=== PATIENT | male | born 1965 | race Caucasian/White ===

== ENCOUNTER 2018-10-15 16:46 | Emergency (ER) | payer SELFPAY ==
[~2018-10-15] VITALS: Ht 182.9 cm; Wt 127.0 kg
[2018-10-15 16:48] VITALS: BP_SYST 164
--- NOTE | 2018-10-15 16:48 | NUR ---
Geraldine richardson in ED - 10/15/18 at 1657 by [email or web address] Placed in room 02 . Placed on cardiac rehab nurse, blood pressure machine and pulse oximeter. To gown for exam. Side rails up.
--- NOTE | 2018-10-15 16:48 | NUR ---
patient arrived AOx4 from home with c/o SOB x 4 days. patient states he has had a chest cold for about 2 weeks and its gotten worse. patient is able to speak in complete sentances and can walk without assistance or SOB. Lung deras are wheezing bilaterally.no other complaint or injury at this time.
--- NOTE | 2018-10-15 16:48 | NUR ---
Placed in room 04 . Placed on school lunch monitor, blood pressure machine and pulse oximeter. To gown for exam. Side rails up.
--- NOTE | 2018-10-15 17:00 | NUR ---
RT at bedside
[2018-10-15] MEDS ORDERED: IPRATROPIUM/ALBUTEROL SULFATE 3 ML AMPUL.NEB (DUONEB) ONE (17:02)
--- NOTE | 2018-10-15 17:30 | NUR ---
patient states he feels better after treatment. patient has a history of smoking and patient states this happens a lot.
[2018-10-15] MEDS ORDERED: methylPREDNISolone SOD SUCC/PF 62.5 MG/ML VIAL IVP ONE (17:45)
[2018-10-15 18:03] LABS: RED BLOOD CELL COUNT(AUTO) 4.46 MIL/uL (4.2-6.2); WHITE BLOOD COUNT (AUTO) 8.8 K/uL (4.8-10.8)
[2018-10-15 18:04] LABS: HEMOGLOBIN 14.4 g/dL (14.0-18.0); LYMPHOCYTES % (AUTO) 26.5 % (20.5-51.5); MEAN CORPUSCULAR HEMOGLOBIN 32 pg (27-31); MEAN CORPUSCULAR HGB CONC 34 % (32-36); MEAN CORPUSCULAR VOLUME 96 fL (79.0-98.0); MONOCYTES % (AUTO) 6.6 % (1.7-9.3); NEUTROPHILS % (AUTO) 59.5 % (40.0-70.0); PLATELET COUNT (AUTO) 242 K/uL (130-430); RED CELL DISTRIBUTION WIDTH 15.6 % (9.0-15.0)
[2018-10-15 18:05] LABS: BASOPHILS # (AUTO) 0.1 K/uL (0.0-0.2); BASOPHILS % (AUTO) 0.9 % (0.0-2.0); EOSINOPHILS # (AUTO) 0.6 K/uL (0.0-0.4); EOSINOPHILS % (AUTO) 6.5 % (0.0-4.0); LYMPHOCYTES # (AUTO) 2.3 K/uL (1.0-5.5); MONOCYTES # (AUTO) 0.6 K/uL (0.0-1.0); NEUTROPHILS # (AUTO) 5.2 K/uL (1.8-7.7)
[2018-10-15 18:10] LABS: ANION GAP 9 (5-15); CALCIUM 8.7 mg/dL (8.4-11.0); CHLORIDE 108 mmol/L (98-107); CREATININE 0.97 mg/dL (0.55-1.30); GLUCOSE 138 mg/dL (70-99); SODIUM SERUM 142 mmol/L (136-145); UREA NITROGEN, BLOOD 15 mg/dL (8-21)
[2018-10-15 18:12] LABS: GFR AFRICAN AMERICAN 105 mL/min (>90)
[2018-10-15 18:18] LABS: ALANINE AMINOTRANSFERASE 36 U/L (12-78); ALBUMIN 3.6 g/dL (3.4-4.8); ASPARTATE AMINOTRANSFERASE 25 U/L (10-37); TOTAL BILIRUBIN 0.2 mg/dL (0.0-1.0)
[2018-10-15 18:47] VITALS: BP_SYST 144
--- NOTE | 2018-10-15 18:47 | NUR ---
Patient given written and verbal discharge instructions and verbalizes understanding. ER MD discussed with patient the results and treatment provided. Patient in stable condition. ID arm band removed. IV catheter removed intact and dressing applied, no active bleeding. Rx of Prednisone, Zithromax, Albuterol given. Patient educated on pain management and to follow up with PMD. Pain Scale 0/10. Opportunity for questions provided and answered. Medication side effect fact sheet provided.
== END 2018-10-15 18:47 | disposition home or self-care (01) ==
LOC: SED 16:46
DX: J20.9 Acute bronchitis, unspecified (principal); J44.9 Chronic obstructive pulmonary disease, unspecified; M54.2 Cervicalgia; F17.210 Nicotine dependence, cigarettes, uncomplicated; Z71.6 Tobacco abuse counseling
CPT/HCPCS: 36415; 71045; 80053; 84484; 85025; 93005; 96374; 99284; J2930; J7620